=== PATIENT | female | born 1995 | race Caucasian/White ===

== ENCOUNTER → 2016-11-20 | Outpatient (CLI) | payer OTHER ==
--- NOTE | 2016-11-20 08:32 | DIAGNOSTIC IMAGING REPORT ---
LEFT WRIST W/NAVICULAR MIN 3 VIEWS CLINICAL HISTORY: LEFT WRIST PAIN S/P FALL COMPARISON: None. DISCUSSION: The bones and joint spaces appear intact. There is no evidence of fracture, dislocation or bony disease. There is no evidence for soft tissue swelling. IMPRESSION: Negative study. Electronically signed by: Dewey Sarabia M.D. 11/20/2016 8:31 AM Dictated Date/Time: 11/20/2016 8:30 AM
== END | disposition home or self-care (01) ==
LOC: C.RDSM 08:07
PROVIDERS: ATTEND Family Medicine
DX: M25.532 Pain in left wrist (principal)